=== PATIENT | female | born 1950 ===

== ENCOUNTER → 2018-08-02 | Outpatient (CLI) | payer MEDICARE, BC ==
[2018-08-02 17:44] LABS: CALCIUM 9.2 mg/dL (8.4-10.2); CREATININE, serum 1.05 mg/dL (0.52-1.25); POTASSIUM 4.9 mmol/L (3.4-5.0)
== END ==
LOC: ZCOL.LAB 17:06
PROVIDERS: Family Medicine
DX: E11.9 Type 2 diabetes mellitus without complications (principal)

== ENCOUNTER → 2019-02-27 | Outpatient (CLI) | payer MEDICARE, BC ==
[2019-02-27 21:10] LABS: CALCIUM 9.3 mg/dL (8.4-10.2); CREATININE, serum 1.43 (0.52-1.25); POTASSIUM 4.6 mmol/L (3.4-5.0)
== END ==
LOC: ZCOL.LAB 17:23
PROVIDERS: Family Medicine
DX: E11.9 Type 2 diabetes mellitus without complications (principal); I10 Essential (primary) hypertension